=== PATIENT | female | born 1965 | race Caucasian/White ===

== ENCOUNTER 2017-06-04 15:13 | Emergency (ER) | payer OTHER ==
[~2017-06-04] VITALS: Ht 154.9 cm; Wt 59.0 kg
[2017-06-04 15:19] VITALS: BP 150/81; PULSE 91; RESP 18; O2SAT 99
[2017-06-04] MEDS ORDERED: METO1TAB9 PO (15:29)
[2017-06-04] MEDS ORDERED: AMLO10TA2 PO (15:29)
[2017-06-04 15:40] VITALS: BP 92/53; PULSE 71; RESP 18; O2SAT 97
[2017-06-04] MEDS ORDERED: MORPHINE SULFATE 4 MG/ML INJ IV PUSH ONE ×2 (15:45→17:30)
[2017-06-04] MEDS ORDERED: SODIUM CHLORIDE 0.9% FLUSH 10 ML FLUSH IVF PRN (15:45)
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
[2017-06-04 16:13] LABS: AUTOMATED NEUTROPHIL # 4.8 TH/MM3 (1.8-7.7); BASOPHIL % 0.5 % (0.0-2.0); EOSINOPHIL # 0.1 TH/MM3 (0-0.4); EOSINOPHIL % 1.3 % (0.0-4.0); HEMO FLAGS DIFF FINAL; LYMPH % 27.6 % (9.0-44.0); LYMPHOCYTE # 2.2 TH/MM3 (1.0-4.8); MEAN CELL VOLUME 64.1 FL (80.0-100.0); MEAN CORPUSCULAR HEMOGLOBIN 21.1 PG (27.0-34.0); MEAN CORPUSCULAR HGB CONC 32.9 % (32.0-36.0); NEUT % 60.6 % (16.0-70.0); PLATELET COUNT 229 TH/MM3 (150-450); RED BLOOD COUNT 4.68 MIL/MM3 (4.00-5.30); RED CELL DISTRIBUTION WIDTH 15.2 % (11.6-17.2); WHITE BLOOD COUNT 7.9 TH/MM3 (4.0-11.0)
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
[2017-06-04 16:25] LABS: ALT (GPT) 51 U/L (10-53); ANION GAP 7 MEQ/L (5-15); AST (GOT) 29 U/L (15-37); BICARBONATE 27.1 MEQ/L (21.0-32.0); BLOOD UREA NITROGEN 17 MG/DL (7-18); CHLORIDE 106 MEQ/L (98-107); GLOMERULAR FILTRATION RATE 73 ML/MIN (>89); POTASSIUM 3.6 MEQ/L (3.5-5.1); SODIUM (NA) 140 MEQ/L (136-145)
[2017-06-04 16:37] LABS: ALKALINE PHOSPHATASE 93 U/L (45-117); TOTAL BILIRUBIN ADULT 0.4 MG/DL (0.2-1.0)
[2017-06-04 16:58] VITALS: O2SAT 97
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
[2017-06-04 17:26] VITALS: BP 124/59; PULSE 77; RESP 18; O2SAT 98
[2017-06-04] MEDS ORDERED: CYCLOBENZAPRINE HCL 10 MG TAB PO ONE (17:30)
[2017-06-04] MEDS ORDERED: IBUP-232 PO (17:57)
[2017-06-04] MEDS ORDERED: CYCL7.5T33 PO (17:57)
[2017-06-04 18:29] LABS: BLOOD, URINE NEG (NEG); COMMENT (UR) CULT NOT INDICATED; CULTURE IF INDICATED CULT NOT INDICATED; GLUCOSE,URINE NEG (NEG); KETONE, URINE NEG (NEG); MUCUS URINE FEW /lpf (OCC); NITRITE,URINE NEG (NEG); SQUAMOUS EPITHELIAL CELL URINE 2 /hpf (0-5); URINE COLOR YELLOW (YELLW/STRAW)
[2017-06-04 18:49] VITALS: BP 126/62; PULSE 78; RESP 18; O2SAT 98
[2017-06-04] MEDS ORDERED: ONDANSETRON HCL 4 MG/2 ML VIAL IV PUSH ONE (19:00)
== END 2017-06-05 01:14 | disposition home or self-care (01) ==
LOC: NEPC 15:13
DX: M79.1 Myalgia (principal); R51 Headache; M25.552 Pain in left hip; I10 Essential (primary) hypertension; V29.59XA Motorcycle passenger injured in collision with other motor vehicles in traffic accident, initial encounter
CPT/HCPCS: 70450; 72125; 72128; 72131; 73502; 74176; 80053; 81001; 85025; 96374; 96375; 99285; J2270; J2405

== ENCOUNTER 2017-10-09 19:39 | Inpatient (IN) | payer OTHER ==
[~2017-10-09] VITALS: Ht 154.9 cm; Wt 64.4 kg
[~2017-10-09 19:39] MED LIST: AMLO10TA2 PO; CYCL7.5T33 PO; IBUP-232 PO; METO1TAB9 PO
[2017-10-09 20:22] VITALS: BP 135/82; PULSE 85; RESP 20; O2SAT 98
[2017-10-09] MEDS ORDERED: SODIUM CHLOR 0.9% 1000 ML INJ 1,000 ML IV ONE (21:15)
[2017-10-09] MEDS ORDERED: MORPHINE SULFATE 4 MG/ML INJ IV PUSH ONE ×2 (21:15→22:30)
[2017-10-09] MEDS ORDERED: ONDANSETRON HCL 4 MG/2 ML VIAL IV PUSH ONE (21:15)
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
[2017-10-09 22:44] VITALS: BP 102/57; PULSE 81; RESP 20; O2SAT 98
[2017-10-09] MEDS ORDERED: PERC5TAB12 PO (22:56)
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
[2017-10-10] VITALS (13 sets, daily range): BP systolic 94–127; BP diastolic 52–78; PULSE 66–85; RESP 17–19; TEMP 97.7–98.2; O2SAT 92–98
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
[2017-10-10] MEDS ORDERED: LIDOCAINE HCL 1% 20 ML VIAL INFIL ONE (01:00)
[2017-10-10] MEDS ORDERED: HYDROmorphone HCL PF 2 MG/ML VIAL IV PUSH ONE (01:00)
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
[2017-10-10] MEDS ORDERED: LOSA25TA PO (02:21)
[2017-10-10] MEDS ORDERED: LEVO.075 PO (02:21)
[2017-10-10] MEDS ORDERED: WELLTAB39 PO (02:21)
[2017-10-10] MEDS ORDERED: ONDANSETRON HCL 4 MG/2 ML VIAL IV PUSH PRN (02:45)
[2017-10-10] MEDS ORDERED: CHLORHEXIDINE GLUCONATE 2 % 1 PACK (2 CLOTHS) TOP PRN (02:45)
[2017-10-10] MEDS ORDERED: MORPHINE SULFATE 2 MG/ML INJ IV PUSH PRN (02:45)
[2017-10-10] MEDS ORDERED: MISCELLANEOUS NURSING INFORMATION XX SCH (02:45)
[2017-10-10] MEDS ORDERED: MORPHINE SULFATE 4 MG/ML INJ IV PUSH PRN (02:45)
[2017-10-10] MEDS ORDERED: fentaNYL CITRATE 250 MCG/5 ML AMP ONE (02:51)
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
[2017-10-10] MEDS: LACTATED RINGER'S 1000 ML INJ 1,000 ML IV SCH ×2 (03:20→05:05)
[2017-10-10] MEDS: CHLORHEXIDINE GLUCONATE 2 % 1 PACK (2 CLOTHS) TOP SCH (04:00)
[2017-10-10] MEDS ORDERED: PERC5TAB12 PO (04:34)
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
[2017-10-10] MEDS ORDERED: BISACODYL 10 MG SUPP RECTAL PRN (04:45)
[2017-10-10] MEDS ORDERED: SENNOSIDES 8.6 MG TAB PO PRN (04:45)
[2017-10-10] MEDS ORDERED: Post-op Orders (for Pharmacy) XX ONE (04:45)
[2017-10-10] MEDS ORDERED: oxyCODONE/ACETAMINOPHEN 5 MG/325 MG TAB PO PRN ×2 (04:45)
[2017-10-10] MEDS ORDERED: SODIUM CHLORIDE 0.9% FLUSH 10 ML FLUSH IV FLUSH PRN (04:45)
[2017-10-10] MEDS ORDERED: LACTULOSE SYRUP 20 GM/30 ML CUP PO PRN (04:45)
[2017-10-10] MEDS ORDERED: PROMETHAZINE HCL 25 MG TAB PO PRN (04:45)
[2017-10-10] MEDS ORDERED: MAGNESIUM HYDROXIDE SUSP 30 ML CUP PO PRN (04:45)
[2017-10-10] MEDS: KETOROLAC TROMETHAMINE 30 MG/ML (IVP) VIAL IVP SCH ×4 (05:00→22:26)
[2017-10-10] MEDS: VANCOMYCIN INJ 1,000 MG in SODIUM CHLOR 0.9% 250 ML INJ 250 ML IV SCH ×2 (05:00→16:52)
[2017-10-10] MEDS ORDERED: DO NOT ADM ANY ANTICOAGULANT DRUGS PRN (05:15)
[2017-10-10] MEDS ORDERED: ceFAZolin 2 GM PREMIX 50 ML IV SCH (06:00)
[2017-10-10] MEDS ORDERED: oxyCODONE/ACETAMINOPHEN 10 MG/325 MG TAB PO PRN (07:30)
[2017-10-10] MEDS ORDERED: ENALAPRILAT 1.25 MG/ML VIAL IV PUSH PRN (07:30)
[2017-10-10] MEDS: MORPHINE SULFATE 8 MG/ML INJ IV PUSH PRN (07:34)
[2017-10-10] MEDS: ceFAZolin 2 GM PREMIX 50 ML IV SCH ×3 (07:35→22:26)
[2017-10-10] MEDS ORDERED: PILL SPLITTER OTHER PRN (08:00)
[2017-10-10] MEDS ORDERED: METOCLOPRAMIDE HCL 10 MG/2 ML VIAL ONE (08:48)
[2017-10-10] MEDS: CYCLOBENZAPRINE HCL 10 MG TAB PO SCH ×3 (09:00→16:52)
[2017-10-10] MEDS ORDERED: METOCLOPRAMIDE HCL 10 MG/2 ML VIAL IV PUSH ONE (09:00)
[2017-10-10] MEDS: buPROPion HCL 150 MG SUSTAINED RELEASE TAB PO SCH ×2 (09:38→22:26)
[2017-10-10] MEDS: DOCUSATE SODIUM 50 MG/SENNA 8.6 MG TAB PO SCH ×2 (09:39→22:26)
[2017-10-10] MEDS: LEVOTHYROXINE SODIUM 75 MCG TAB PO SCH (09:39)
[2017-10-10] MEDS: LOSARTAN 25 MG TAB PO SCH (09:39)
[2017-10-10] MEDS: DOCUSATE SODIUM 100 MG CAP PO SCH ×2 (09:39→22:26)
[2017-10-10] MEDS: METOPROLOL SUCCINATE 50 MG EXTENDED RELEASE TAB PO SCH (09:40)
[2017-10-10] MEDS: SODIUM CHLORIDE 0.9% FLUSH 10 ML FLUSH IV FLUSH SCH ×2 (09:40→22:26)
[2017-10-10] MEDS ORDERED: ePHEDrine/NS 25 MG/5 ML SYRINGE IV ONE (12:00)
[2017-10-10] MEDS ORDERED: ROCURONIUM INJ 50 MG/5 ML SYRINGE IV PUSH ONE (12:00)
[2017-10-10] MEDS ORDERED: ONDANSETRON HCL 4 MG/2 ML VIAL IV ONE (12:00)
[2017-10-10] MEDS ORDERED: PHENYLEPH/NS 1000 MCG/10 ML SYR IV ONE (12:00)
[2017-10-10] MEDS ORDERED: ceFAZolin INJ 1,000 MG VIAL IV ONE (12:00)
[2017-10-10] MEDS ORDERED: DEXAMETHASONE SOD PHOS 4 MG/ML VIAL IV ONE (12:00)
[2017-10-10] MEDS ORDERED: NEOSTIGMINE 5 MG/5 ML SYRINGE IV PUSH ONE (12:00)
[2017-10-10] MEDS ORDERED: GLYCOPYRROLATE 1 MG/5 ML SYRINGE IV PUSH ONE (12:00)
[2017-10-10] MEDS ORDERED: PROPOFOL 200 MG/20 ML AMP IV ONE (12:00)
[2017-10-10] MEDS ORDERED: LIDOCAINE HCL 1% PF 5 ML SYRINGE OTHER ONE (12:00)
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
[2017-10-10] MEDS: ENOXAPARIN SODIUM 30 MG/0.3 ML SYRINGE SQ SCH (16:52)
[2017-10-11] MEDS: CHLORHEXIDINE GLUCONATE 2 % 1 PACK (2 CLOTHS) TOP SCH (03:16)
[2017-10-11] MEDS: ENOXAPARIN SODIUM 30 MG/0.3 ML SYRINGE SQ SCH ×2 (05:00→16:10)
[2017-10-11 05:05] VITALS: BP 118/60; PULSE 62; RESP 17; TEMP 97.8; O2SAT 95
[2017-10-11] MEDS: VANCOMYCIN INJ 1,000 MG in SODIUM CHLOR 0.9% 250 ML INJ 250 ML IV SCH ×2 (05:32→15:59)
[2017-10-11] MEDS: KETOROLAC TROMETHAMINE 30 MG/ML (IVP) VIAL IVP SCH ×3 (05:33→18:10)
[2017-10-11] MEDS: LEVOTHYROXINE SODIUM 75 MCG TAB PO SCH (05:38)
[2017-10-11 08:00] VITALS: BP 128/72; PULSE 67; RESP 16; TEMP 98.6; O2SAT 95
[2017-10-11] MEDS ORDERED: ONDANSETRON HCL 4 MG/2 ML VIAL IV PUSH SCH (08:00)
[2017-10-11] MEDS ORDERED: POVIDONE IODINE 7.5% SCRUB 118 ML BOTTLE TOPICAL SCH (08:00)
[2017-10-11] MEDS: DOCUSATE SODIUM 100 MG CAP PO SCH ×2 (08:29→21:54)
[2017-10-11] MEDS: MULTIVITAMINS/MINERALS THERAPEUTIC TAB PO SCH ×2 (08:29→21:54)
[2017-10-11] MEDS: buPROPion HCL 150 MG SUSTAINED RELEASE TAB PO SCH ×2 (08:30→21:54)
[2017-10-11] MEDS: DOCUSATE SODIUM 50 MG/SENNA 8.6 MG TAB PO SCH ×2 (08:30→21:54)
[2017-10-11] MEDS: LOSARTAN 25 MG TAB PO SCH (08:30)
[2017-10-11] MEDS: SODIUM CHLORIDE 0.9% FLUSH 10 ML FLUSH IV FLUSH SCH ×2 (08:31→21:54)
[2017-10-11] MEDS: METOPROLOL SUCCINATE 50 MG EXTENDED RELEASE TAB PO SCH (08:31)
[2017-10-11] MEDS: CYCLOBENZAPRINE HCL 10 MG TAB PO SCH ×4 (08:31→18:11)
--- NOTE | 2017-10-11 08:34 | PD.ORT.PN ---
Subjective Subjective Remarks Feeling much better. Swelling significantly improved Objective Vitals Vital Signs Date Time Temp Pulse Resp B/P (MAP) Pulse Ox O2 Delivery O2 Flow Rate FiO2 10/11/17 05:05 97.8 62 17 118/60 (79) 95 10/10/17 23:38 98.2 75 18 109/61 (77) 98 10/10/17 22:24 97.8 78 17 127/63 (84) 94 10/10/17 18:00 70 10/10/17 17:00 72 10/10/17 16:10 73 10/10/17 15:19 97.7 75 19 110/56 (74) 95 10/10/17 15:00 78 10/10/17 14:00 74 10/10/17 13:00 66 10/10/17 12:05 74 10/10/17 11:45 127/78 (94) 10/10/17 11:00 78 10/10/17 11:00 98.1 85 17 94/52 (66) 96 10/10/17 09:25 71 19 119/64 (82) 92 10/10/17 08:52 97.9 90 14 144/69 (94) 98 Room Air I/O 10/10/17 10/10/17 10/10/17 10/11/17 10/11/17 10/11/17 07:00 15:00 23:00 07:00 15:00 23:00 Intake Total 1150 ml 480 ml 290 ml Output Total 10 ml 1050 ml Balance 1140 ml -570 ml 290 ml Intake Oral 480 ml 240 ml IV Total 250 ml 50 ml Other 900 ml Output Urine Total 1000 ml Drainage Total 50 ml Estimated Blood Loss 10 ml # Voids 1 # Bowel Movements 0 Objective Remarks Alert awake and oriented -3. No acute distress. Pulmonary: Normal respiratory effort. Right lower extremity: Wound VAC in place and working, Neurovascularly intact, + EHL/FHL, able to passive and actively flex her great toe and ankle with minimal discomfort. + PT/DP pulses. Supple compartments. Left lower extremity: neurovascularly intact Assessment & Plan Assessment and Plan Postoperative day 1- right leg fasciotomy for posterior compartment syndrome Doing well. Pain is swelling significantly improved. She is able to passively and actively extend her toes and ankle with minimal discomfort. Compartments are soft. Plan for wound closure this afternoon. NPO Cristian Nicole Jr., MD Oct 11, 2017 08:34
[2017-10-11 09:30] LABS: AUTOMATED NEUTROPHIL # 6.3 TH/MM3 (1.8-7.7); BASOPHIL % 0.3 % (0.0-2.0); EOSINOPHIL % 0.3 % (0.0-4.0); HEMATOCRIT 25.5 % (35.0-46.0); HEMOGLOBIN 8.5 GM/DL (11.6-15.3); LYMPH % 25.6 % (9.0-44.0); LYMPHOCYTE # 2.4 TH/MM3 (1.0-4.8); MEAN CELL VOLUME 64.4 FL (80.0-100.0); MEAN CORPUSCULAR HEMOGLOBIN 21.5 PG (27.0-34.0); MEAN CORPUSCULAR HGB CONC 33.4 % (32.0-36.0); MEAN PLATELET VOLUME 8.8 FL (7.0-11.0); MONO % 6.3 % (0.0-8.0); MONOCYTE # 0.6 TH/MM3 (0-0.9); NEUT % 67.5 % (16.0-70.0); PLATELET COUNT 191 TH/MM3 (150-450); RED BLOOD COUNT 3.95 MIL/MM3 (4.00-5.30); RED CELL DISTRIBUTION WIDTH 16.3 % (11.6-17.2); WHITE BLOOD COUNT 9.3 TH/MM3 (4.0-11.0)
[2017-10-11 10:00] LABS: BICARBONATE 26.1 MEQ/L (21.0-32.0); CALCIUM 8.8 MG/DL (8.5-10.1); CREATININE 0.67 MG/DL (0.50-1.00)
[2017-10-11] MEDS ORDERED: INFLUENZA VIRUS VACCINE (QUADRIVALENT) 0.5 ML SYR IM ONE (10:00)
--- NOTE | 2017-10-11 11:27 | EKG ---
Date Performed: 10/10/2017 Time Performed: 12:29:32 PTAGE: 51 years EKG: Sinus rhythm Poor R wave progression - probable normal variant Anterior T wave changes are nonspecific Borderline ECG NO PREVIOUS TRACING DOCTOR: Shreya Alcaraz Interpretating Date/Time 10/11/2017 11:24:23
[2017-10-11 12:00] VITALS: BP 109/57; PULSE 68; RESP 18; TEMP 97.7; O2SAT 96
[2017-10-11] MEDS ORDERED: PROPOFOL 200 MG/20 ML AMP IV ONE (12:00)
[2017-10-11] MEDS ORDERED: LIDOCAINE HCL 1% PF 5 ML SYRINGE OTHER ONE (12:00)
[2017-10-11] MEDS ORDERED: ePHEDrine/NS 25 MG/5 ML SYRINGE IV ONE (12:00)
[2017-10-11] MEDS ORDERED: DEXAMETHASONE SOD PHOS 4 MG/ML VIAL IV ONE (12:00)
[2017-10-11] MEDS ORDERED: ONDANSETRON HCL 4 MG/2 ML VIAL IV ONE (12:00)
[2017-10-11] MEDS ORDERED: ACETAMINOPHEN/HYDROcodone 325 MG/10 MG TAB PO PRN (15:45)
[2017-10-11] MEDS: MORPHINE SULFATE 8 MG/ML INJ IV PUSH PRN (15:59)
[2017-10-11 16:00] VITALS: BP 110/68; PULSE 73; RESP 17; TEMP 97.8; O2SAT 96
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
[2017-10-11] MEDS ORDERED: MORPHINE SULFATE 4 MG/ML INJ IV PUSH PRN (17:45)
[2017-10-11] MEDS: GABAPENTIN 300 MG CAP PO SCH (18:09)
[2017-10-11] MEDS ORDERED: GENTAMICIN SULFATE 80 MG/2 ML VIAL ONE (18:23)
[2017-10-11] MEDS ORDERED: BUPIVACAINE HCL PF 0.5% 30 ML VIAL ONE (18:23)
[2017-10-11 19:38] VITALS: BP 138/67; PULSE 71; RESP 20; TEMP 98.1; O2SAT 95
--- NOTE | 2017-10-11 21:30 | PD.OP ---
cc: Cristian Nicole Jr., MD Operative Report Date of Surgery: Oct 11, 2017 Preoperative Diagnosis: Right leg impending compartment syndrome status post fasciotomy Postoperative Diagnosis: same Procedure: Right leg wound closure Anesthesia: Gen. Surgeon: Cristian Nicole Japanese Tutor(s): Staff Resident Surgeon: None Operation and Findings: The wound VAC was removed from the medial fasciotomy wound. The wound was examined, the soft tissue and muscles were found to be intact without any evidence of erythema, purulent drainage, signs of infection or necrotic soft tissue. The wound was closed with 3-0 Vicryl subcutaneous and 2-0 nylon at the skin. Compartments were soft after closure and there was no tension on the soft tissue closure. Sterile dressing applied. Patient was extubated transferred to PACU in stable conditions. There were no complications. Postop Plan: WBAT dressing changes q day starting POD 5 f/u 2 wks Cristian Nicole Jr., MD Oct 11, 2017 21:30
[2017-10-11] MEDS ORDERED: *morphine SULFATE 4 MG/ML PERIprocedure ONLY ONE (21:48)
[2017-10-11] MEDS ORDERED: DO NOT ADM ANY ANTICOAGULANT DRUGS PRN (22:15)
[2017-10-11] MEDS ORDERED: SENNOSIDES 8.6 MG TAB PO PRN (22:45)
[2017-10-11] MEDS ORDERED: BISACODYL 10 MG SUPP RECTAL PRN (22:45)
[2017-10-11] MEDS ORDERED: MORPHINE SULFATE 8 MG/ML INJ IV PUSH PRN (22:45)
[2017-10-11] MEDS ORDERED: LACTULOSE SYRUP 20 GM/30 ML CUP PO PRN (22:45)
[2017-10-11] MEDS ORDERED: oxyCODONE/ACETAMINOPHEN 5 MG/325 MG TAB PO PRN ×2 (22:45)
[2017-10-11] MEDS ORDERED: SODIUM CHLORIDE 0.9% FLUSH 10 ML FLUSH IV FLUSH PRN (22:45)
[2017-10-11] MEDS ORDERED: ZOLPIDEM TARTRATE 5 MG TAB PO PRN (22:45)
[2017-10-11] MEDS ORDERED: PROMETHAZINE HCL 25 MG TAB PO PRN (22:45)
[2017-10-11] MEDS ORDERED: Post-op Orders (for Pharmacy) XX ONE (22:45)
[2017-10-11] MEDS ORDERED: MAGNESIUM HYDROXIDE SUSP 30 ML CUP PO PRN (22:45)
[2017-10-11 23:55] VITALS: BP 112/64; PULSE 70; RESP 18; TEMP 97.8; O2SAT 93
[2017-10-12] MEDS: KETOROLAC TROMETHAMINE 30 MG/ML (IVP) VIAL IVP SCH ×5 (00:44→18:00)
[2017-10-12] MEDS: CHLORHEXIDINE GLUCONATE 2 % 1 PACK (2 CLOTHS) TOP SCH (03:10)
[2017-10-12 04:15] VITALS: BP 104/57; PULSE 79; RESP 18; TEMP 98.1; O2SAT 93
[2017-10-12 04:39] LABS: HEMATOCRIT 25.5 % (35.0-46.0); HEMOGLOBIN 8.3 GM/DL (11.6-15.3)
[2017-10-12] MEDS: LEVOTHYROXINE SODIUM 75 MCG TAB PO SCH (06:16)
--- NOTE | 2017-10-12 07:40 | PD.ORT.PN ---
Subjective Subjective Remarks Feeling much better. Swelling significantly improved Objective Vitals Vital Signs Date Time Temp Pulse Resp B/P (MAP) Pulse Ox O2 Delivery O2 Flow Rate FiO2 10/12/17 04:15 98.1 79 18 104/57 (73) 93 10/11/17 23:55 97.8 70 18 112/64 (80) 93 10/11/17 22:20 74 19 119/73 (88) 95 Nasal Cannula 3 10/11/17 22:15 99.4 74 19 118/68 (85) 95 Nasal Cannula 3 10/11/17 22:00 82 19 121/73 (89) 98 Nasal Cannula 3 10/11/17 21:45 85 17 120/70 (87) 98 Nasal Cannula 3 10/11/17 21:40 98.4 82 18 120/67 (84) 98 Nasal Cannula 3 10/11/17 20:05 89 Nasal Cannula 10/11/17 20:05 98.2 67 15 159/76 (103) 89 10/11/17 19:38 98.1 71 20 138/67 (90) 95 10/11/17 16:00 97.8 73 17 110/68 (82) 96 10/11/17 12:00 97.7 68 18 109/57 (74) 96 10/11/17 08:00 98.6 67 16 128/72 (90) 95 I/O 10/11/17 10/11/17 10/11/17 10/12/17 10/12/17 10/12/17 07:00 15:00 23:00 07:00 15:00 23:00 Intake Total 290 ml 1165 ml 100 ml 100 ml Output Total 20 ml Balance 290 ml 1145 ml 100 ml 100 ml Intake Oral 240 ml 15 ml IV Total 50 ml 450 ml 100 ml 100 ml Other 700 ml Output Urine Total 0 ml Estimated Blood Loss 20 ml # Voids 1 2 Result Diagram: 10/12/17 0340 10/11/17 0827 Objective Remarks Alert awake and oriented -3. No acute distress. Pulmonary: Normal respiratory effort. Right lower extremity: wound closed, dresing CDI. Neurovascularly intact, +EHL/ FHL, able to passive and actively flex her great toe and ankle with minimal discomfort. + PT/DP pulses. Supple compartments. Left lower extremity: neurovascularly intact Assessment & Plan Assessment and Plan Postoperative day 1- right leg fasciotomy wound closure Doing well. Pain and swelling significantly improved. WBAT dressing change POD 2 rx in chart iv abx lovenox stable to dc from Cristian Trammell Jr., MD Oct 12, 2017 07:40
[2017-10-12] MEDS ORDERED: MORPHINE SULFATE 2 MG/ML INJ IV PUSH PRN (07:45)
[2017-10-12 08:30] VITALS: BP 109/57; PULSE 66; RESP 16; TEMP 97.9; O2SAT 96
[2017-10-12] MEDS: METOPROLOL SUCCINATE 50 MG EXTENDED RELEASE TAB PO SCH (09:00)
[2017-10-12] MEDS: SODIUM CHLORIDE 0.9% FLUSH 10 ML FLUSH IV FLUSH SCH ×2 (09:00→20:29)
[2017-10-12] MEDS ORDERED: ENOXAPARIN SODIUM 30 MG/0.3 ML SYRINGE SQ SCH ×2 (09:00→20:00)
[2017-10-12] MEDS: LOSARTAN 25 MG TAB PO SCH (09:10)
[2017-10-12] MEDS: DOCUSATE SODIUM 50 MG/SENNA 8.6 MG TAB PO SCH ×2 (09:15→20:30)
[2017-10-12] MEDS: MULTIVITAMINS/MINERALS THERAPEUTIC TAB PO SCH ×2 (09:15→20:30)
[2017-10-12] MEDS: GABAPENTIN 300 MG CAP PO SCH ×3 (09:15→18:00)
[2017-10-12] MEDS: buPROPion HCL 150 MG SUSTAINED RELEASE TAB PO SCH ×2 (09:15→20:30)
[2017-10-12] MEDS: CYCLOBENZAPRINE HCL 10 MG TAB PO SCH ×3 (09:17→18:00)
[2017-10-12 12:31] VITALS: BP 103/64; PULSE 71; RESP 18; TEMP 97.7; O2SAT 96
[2017-10-12] MEDS: ACETAMINOPHEN/HYDROcodone 325 MG/10 MG TAB PO PRN ×2 (13:46→20:30)
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
[2017-10-12] MEDS ORDERED: NORC5TAB PO (16:22)
[2017-10-12 18:24] VITALS: BP 97/53; PULSE 80; RESP 16; TEMP 98; O2SAT 92
[2017-10-12 20:00] VITALS: BP 114/58; PULSE 72; RESP 18; TEMP 97.2; O2SAT 91
[2017-10-13] VITALS: BP 117/80; PULSE 64; RESP 20; TEMP 97; O2SAT 98
[2017-10-13] MEDS: KETOROLAC TROMETHAMINE 30 MG/ML (IVP) VIAL IVP SCH ×2 (01:02→05:05)
[2017-10-13 04:00] VITALS: BP 120/59; PULSE 68; RESP 18; TEMP 98; O2SAT 94
[2017-10-13] MEDS: CHLORHEXIDINE GLUCONATE 2 % 1 PACK (2 CLOTHS) TOP SCH (04:00)
[2017-10-13] MEDS: LEVOTHYROXINE SODIUM 75 MCG TAB PO SCH (05:05)
[2017-10-13 08:18] VITALS: BP 122/66; PULSE 69; RESP 20; TEMP 98.2; O2SAT 94
[2017-10-13] MEDS ORDERED: WALKER WHEELS/F1 MIS (10:07)
[2017-10-13] MEDS: GABAPENTIN 300 MG CAP PO SCH (11:06)
[2017-10-13] MEDS: MULTIVITAMINS/MINERALS THERAPEUTIC TAB PO SCH (11:06)
[2017-10-13] MEDS: buPROPion HCL 150 MG SUSTAINED RELEASE TAB PO SCH (11:06)
[2017-10-13] MEDS: CYCLOBENZAPRINE HCL 10 MG TAB PO SCH (11:06)
[2017-10-13] MEDS: ACETAMINOPHEN/HYDROcodone 325 MG/10 MG TAB PO PRN (11:44)
[2017-10-13 12:06] VITALS: BP 135/67; PULSE 69; RESP 20; TEMP 97.5; O2SAT 95
[2017-10-13 16:10] VITALS: BP 108/60; PULSE 73; RESP 20; TEMP 98; O2SAT 99
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
== END 2017-10-13 16:59 | disposition home or self-care (01) | DRG 909 ==
LOC: NEPC 19:39 → NEDA 10-10 02:33 → HPAC 10-10 06:10 → HCPC 10-10 09:00 → N05B 10-10 22:20
PROVIDERS: ADMIT Surgery Trauma Surgery; ATTEND Surgery Trauma Surgery
PROC: 0KNS0ZZ Release Right Lower Leg Muscle, Open Approach (ICD-10-PCS; 2017-10-10)
PROC: 0KNS0ZZ Release Right Lower Leg Muscle, Open Approach (ICD-10-PCS; 2017-10-10)
PROC: 0JQN0ZZ Repair Right Lower Leg Subcutaneous Tissue and Fascia, Open Approach (ICD-10-PCS; principal; 2017-10-11 20:49)
DX: T79.A21A Traumatic compartment syndrome of right lower extremity, initial encounter (principal); G93.89 Other specified disorders of brain; I10 Essential (primary) hypertension; E03.9 Hypothyroidism, unspecified; S80.11XA Contusion of right lower leg, initial encounter; S91.011A Laceration without foreign body, right ankle, initial encounter; F32.9 Major depressive disorder, single episode, unspecified; V23.5XXA Motorcycle passenger injured in collision with car, pick-up truck or van in traffic accident, initial encounter; Y92.410 Unspecified street and highway as the place of occurrence of the external cause
CPT/HCPCS: 70450; 71045; 72125; 73560; 73590; 73610; 73620; 80048; 82550; 85014; 85018; 85025; 86850; 86900; 86901; 93005; 94150; 96361; 96374; 96375; J0690; J1100; J1170; J1580; J1650; J1885; J2270; J2370; J2405; J2710; J2765; J3010; J3370; J7030; J7050; J7120

== ENCOUNTER 2017-10-25 18:31 | Emergency (ER) | payer OTHER ==
[~2017-10-25] VITALS: Ht 154.9 cm; Wt 59.5 kg
[~2017-10-25 18:31] MED LIST changes: -CYCL7.5T33 PO; -IBUP-232 PO; +LEVO.075 PO; +LOSA25TA PO; +NORC5TAB PO; +WALKER WHEELS/F1 MIS; +WELLTAB39 PO
[2017-10-25 19:00] VITALS: BP 178/79; PULSE 89; RESP 20; TEMP 98.2; O2SAT 100
[2017-10-25 21:55] LABS: AUTOMATED NEUTROPHIL # 3.9 TH/MM3 (1.8-7.7); BASOPHIL % 0.7 % (0.0-2.0); EOSINOPHIL # 0.1 TH/MM3 (0-0.4); EOSINOPHIL % 1.6 % (0.0-4.0); HEMATOCRIT 31.5 % (35.0-46.0); HEMOGLOBIN 10.3 GM/DL (11.6-15.3); LYMPH % 27.4 % (9.0-44.0); LYMPHOCYTE # 1.8 TH/MM3 (1.0-4.8); MEAN CELL VOLUME 64.5 FL (80.0-100.0); MEAN CORPUSCULAR HEMOGLOBIN 21.2 PG (27.0-34.0); MEAN CORPUSCULAR HGB CONC 32.8 % (32.0-36.0); MEAN PLATELET VOLUME 8.1 FL (7.0-11.0); MONO % 10.6 % (0.0-8.0); MONOCYTE # 0.7 TH/MM3 (0-0.9); NEUT % 59.7 % (16.0-70.0); PLATELET COUNT 384 TH/MM3 (150-450); RED BLOOD COUNT 4.88 MIL/MM3 (4.00-5.30); RED CELL DISTRIBUTION WIDTH 16.3 % (11.6-17.2); WHITE BLOOD COUNT 6.5 TH/MM3 (4.0-11.0)
[2017-10-25 22:01] VITALS: BP 166/81; PULSE 85; RESP 18; O2SAT 100
[2017-10-25 22:06] LABS: ALBUMIN 4.4 GM/DL (3.4-5.0); AST (GOT) 29 U/L (15-37); BICARBONATE 24.7 MEQ/L (21.0-32.0); BLOOD UREA NITROGEN 16 MG/DL (7-18); CALCIUM 9.6 MG/DL (8.5-10.1); CHLORIDE 103 MEQ/L (98-107); CREATININE 0.88 MG/DL (0.50-1.00); GLOMERULAR FILTRATION RATE 67 ML/MIN (>89); GLUCOSE,RANDOM 103 MG/DL (74-106); SODIUM (NA) 137 MEQ/L (136-145)
[2017-10-25 22:10] LABS: ALKALINE PHOSPHATASE 107 U/L (45-117); ALT (GPT) 49 U/L (10-53); TOTAL BILIRUBIN ADULT 0.5 MG/DL (0.2-1.0); TOTAL PROTEIN 9.7 GM/DL (6.4-8.2)
[2017-10-25 22:11] LABS: INTERNATIONAL NORMALIZED RATIO 1.1 RATIO; PROTHROMBIN TIME - PATIENT 11.3 SEC (9.8-11.6)
[2017-10-25] MEDS ORDERED: CLINDAMYCIN 600 MG/NS PREMIX 50 ML IV ONE (22:15)
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
--- NOTE | 2017-10-25 22:39 | RADRPT ---
EXAM DATE/TIME: 10/25/2017 22:19 [facility] COMPARISON: No previous studies available for comparison. INDICATIONS : Right lower leg pain. Possible infection. MEDICAL HISTORY : Seizures. Hypertension. SURGICAL HISTORY : Hysterectomy. ENCOUNTER: Initial ACUITY: 1 week PAIN SCORE: 9/10 LOCATION: Right lower leg. FINDINGS: Two view examination of the right tibia demonstrates no evidence of fracture or dislocation. Bony mi neralization is normal. The soft tissue structures are mildly swollen in the distal leg medially. CONCLUSION: 1. There is some soft tissue swelling in the distal leg. No bony abnormality. Neal Butts MD on October 25, 2017 at 22:35 Board Certified Radiologist. This report was verified electronically.
[2017-10-25] MEDS ORDERED: BACT800T5 PO (23:08)
[2017-10-25] MEDS ORDERED: CEPH-460 PO (23:08)
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
== END 2017-10-25 23:48 | disposition home or self-care (01) ==
LOC: NED 18:31 → NEPE 23:48
DX: L03.116 Cellulitis of left lower limb (principal); T81.4XXA Infection following a procedure, initial encounter; E07.9 Disorder of thyroid, unspecified; I10 Essential (primary) hypertension
CPT/HCPCS: 73590; 80053; 83605; 85025; 85610; 85730; 96365